=== PATIENT | male | born 1995 | race Caucasian/White ===

== ENCOUNTER 2022-05-04 13:04 | Outpatient (CLI) | payer OTHER ==
[2022-05-04 13:49] VITALS: BP 144/98
--- NOTE | 2022-05-04 13:49 | SLEEP CARE CONSULTATION ---
Information from patient questionnaire entered by Sudeep Quijano. I have reviewed and concur with the information entered by Sudeep Quijano. This document represents the service I personally performed and the decisions made by me, Anna Barnes ARNP. History of Present Illness Service Date and Time: 05/04/2022 1304 Reason for Visit: New patient Chief Complaint: reports: Unrefreshed sleep, Excessive daytime sleepiness, Fatigue, Frequent awakenings at night Date of Onset: MULTIPLE YEARS Usual bedtime: midnight Time it takes to fall asleep: DEPENDS ON THE DAY; avg 30-45 minutes Snores at night: Yes Observed to quit breathing while asleep: No Sleeps alone due to snoring: No Number of times waking at night: A LOT; almost every hour, 6 times on averag Reasons for waking at night: reports: Pain, Other (UNKNOWN REASON ). denies: Choking, Snoring, Gasping for air Toss, Turn, or Twitch while sleeping: Yes Recalls having dreams: Yes Usually gets out of bed at: depends; 5-6 AM Feels refreshed in the morning: No Morning headache: Yes (1-2 times a week; RESOLVES WHEN MEDICATED ) Sleepy or fatigued during the day: Yes Ever fallen asleep while driving: No Takes day naps: No Dreams during day naps: No Prior sleep studies: No Additional HPI information: I had the pleasure of seeing GISSEL LOPES today regarding the possibility of him having a sleep disorder. His current complaints are unrefreshed sleep, excessive daytime sleepiness, fatigue and frequent night awakenings. He states he is tired all the time and not sleeping well for several years. He has been told that he snores a little bit. His girlfriend did not notice any pauses in breathing but he states she is a heavy sleeper. 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 Patient is Single and lives in . Have you smoked in the past 12 months: No Alcohol use: Yes Alcohol amount and frequency: 1-2 TWICE A WEEK Caffeine use: Yes Caffeine amount and frequency: 1 CUP IN THE MORNING Family History Family history of sleep disordered breathing: No Family Hx Sleep Apnea: Father: Snoring Allergies and Home Medications Known drug allergies: No Drug allergies reviewed: Yes (NKDA) Home medication list reviewed: Yes (no daily medications) Review of Systems Weight gain over past 5 years: 40 Cardiovascular: reports: high blood pressure (having evaluated), palpitations Gastrointestinal: reports: heartburn, abdominal pain Neurological: reports: headaches Psychiatric: reports: anxiety, depression Ear/Nose/Throat: reports: tonsillectomy, wisdom teeth removed Musculoskeletal: reports: joint pain, back pain Immunologic: denies: allergies to food or environment Physical Exam Vital signs obtained and entered by: ROBERT FUNG Blood Pressure: 144/98 (LEFT ARM ) Cuff size: regular Heart Rate: 95 O2 Saturation: 98 Height: 5 ft 8 in Weight: 223 lb Body Mass Index: 33.9 BMI Classification: Obese Neck circumference: 16.5 (INCHES ) Mouth and throat: narrow oropharynx Soft palate: long Hard palate: normal Uvula: normal Uvula visualization: 25% Mallampati Class III Tongue: enlarged in size with teeth santana on lateral edges Tonsils: absent bilaterally Neck: normal w/o lymphadenopathy or thyromegaly Heart: regular rate and rhythm Lungs: clear bilaterally Impression and Plan 1. Suspected Obstructive Sleep Apnea-Hypopnea Syndrome, as suggested by a history of irregular snoring, morning headache, frequent awakening during the night, unrefreshed sleep, cognitive impairment, and excessive daytime sleepiness. Narrow oropharynx and obesity are common predisposing factors for obstructive sleep apnea-hypopnea syndrome. I recommend proceeding to polysomnography to confirm the diagnosis and to assess severity. If the patient has significant sleep disordered breathing, a manual CPAP titration study will also be performed to find the optimal treatment pressure. I informed the patient of what the sleep studies involve and after some discussion, obtained agreement to proceed. The pathophysiology of obstructive sleep apnea-hypopnea syndrome was discussed with the patient and health risks of cardiovascular and cerebrovascular disease if not treated. Risks of drowsy driving discussed in detail and patient advised to avoid long distance driving and to ear pull machine operator at the first sign of drowsiness. Patient agreed to plan. * Schedule polysomnography * Avoid long distance driving or driving when feeling sleepy. * Avoid alcohol, sedative and muscle relaxant around bedtime. * Attempt to lose weight. * Review instructions provided by trained office staff on how to prepare for the sleep study. * Return for follow-up after sleep study completed. Counseling Topics: Weight loss health impact Visit Type: In Office Time Spent with Patient (minutes): 25 Provider Statement: I spent 100% of the Face to Face Visit with the patient with greater than 50% spent counseling the patient and coordination of care.
== END 2022-05-04 13:05 | disposition home or self-care (01) ==
LOC: SC 13:04
PROVIDERS: ATTEND Nurse Practitioner Family
DX: R06.83 Snoring (principal); G47.8 Other sleep disorders; R51.9 Headache, unspecified; G47.10 Hypersomnia, unspecified; R53.83 Other fatigue; E66.9 Obesity, unspecified; Z68.33 Body mass index [BMI] 33.0-33.9, adult
CPT/HCPCS: 99202; 99212

== ENCOUNTER 2022-06-15 15:36 | Outpatient (CLI) | payer OTHER ==
--- NOTE | 2022-06-15 16:14 | SLEEP CARE CONSULTATION ---
Information from patient questionnaire entered by Elodia Keane. I have reviewed and concur with the information entered by Elodia Keane. This document represents the service I personally performed and the decisions made by , Anna Barnes ARNP. History of Present Illness Service Date and Time: 06/15/2022 1536 Initial [place] Sleepiness Scale score: 14 (05/05/22) Current [place] Sleepiness Scale score: 14 (06/15/2022) Additional HPI information: GISSEL LOPES returns for follow up and results of the recently performed polysomnography. The patient was informed of the following findings: No significant sleep disordered breathing with an average AHI of 0.5 and apryl oxygen saturation of 90%. I explained the pathophysiology behind obstructive sleep apnea. Patient does not have sleep apnea and was advised how weight gain could increase the risk of developing sleep apnea in the future. I strongly encouraged the patient to lose weight. Patient has light snoring. Snoring can be reduced by weight loss. Weight loss is best achieved with diet consult. Patient instructed to contact PCP for referral. Snoring can also be treated with an oral appliance from a dentist. Advised to check insurance coverage. In addition, an ENT evaluation can be do to see if other treatment is indicated. Patient counseled not drink alcohol less than 4 hours before bedtime as it can increase snoring and apnea. Patient was cautioned about risks of drowsy driving until sleepiness symptoms resolve. Patient denies drowsy driving. Sleep Study - Results Type of Sleep Study: Polysomnography (COMPLETED 05/19/2022) Prior sleep studies: No Polysomnography/Home Sleep Study results: IMPRESSION: The quality of the study is good. The patient had normal sleep efficiency. The sleep architecture was relatively normal as well considering the first night effect. Respiratory monitoring showed no evidence of sleep disordered breathing (AHI = 0.5) or hypoxia (apryl oxygen saturation of 90%). The patient slept adequately in supine position (supine AHI = 0.6; non-supine = 0.45). Apryl oxygen saturation. There was no significant periodic leg movement of sleep. Cardiac rhythm was normal sinus rhythm without significant arrhythmia. No abnormal behavior (parasomnia) observed during the night. Allergies and Home Medications Drug allergies reviewed: Yes (NKDA) Home medication list reviewed: Yes (Trazodone, Zoloft) Review of Systems Review of systems same as previous: No (depression) Physical Exam Vital signs obtained and entered by: ELODIA Bobo MA Blood Pressure: 136/92 (LEFT ARM) Cuff size: regular Heart Rate: 76 O2 Saturation: 97 Height: 5 ft 8 in Weight: 215 lb 9.6 oz Body Mass Index: 32.8 BMI Classification: Obese Impression and Plan Snoring but no significant sleep disordered breathing. Patient advised that often weight loss will reduce snoring as well as apnea risk. An oral appliance can also be used for snoring. This would require a dental consultation. Patient cautioned not to use other online appliances as can cause bite issues. A list of accredited dentists in [facility] and one local dentist who makes oral appliances is available in office. Patient is advised to check if insurance will cover. An ENT consult can also be helpful to determine if any other treatment is an option. * Attempt to lose weight * Avoid alcohol consumption near bedtime * The patient is cautioned about driving until sleepiness is completely resolved. * Return as needed for follow up. Counseling Topics: Weight loss health impact Visit Type: In Office Time Spent with Patient (minutes): 10 Provider Statement: I spent 100% of the Face to Face Visit with the patient with greater than 50% spent counseling the patient and coordination of care.
[2022-06-15 16:16] VITALS: BP 136/92
== END 2022-06-15 15:37 | disposition home or self-care (01) ==
LOC: SC 15:36
PROVIDERS: ATTEND Nurse Practitioner Family
DX: R06.83 Snoring (principal); E66.9 Obesity, unspecified; Z68.32 Body mass index [BMI] 32.0-32.9, adult
CPT/HCPCS: 99212

== ENCOUNTER 2022-08-31 16:13 | Outpatient (CLI) | payer OTHER ==
--- NOTE | 2022-09-01 12:14 | MRI Report ---
PROCEDURE: KNEE WO - LT INDICATIONS: KNEE PAIN TECHNIQUE: Noncontrast sagittal PD fast spin echo and T2 fast spin echo with fat saturation, sagittal 3-D gradie nt sequence with fat saturation; coronal T1 spin echo and PD fast spin echo with fat saturation, and axial PD fast spin echo with fat saturation through the knee. COMPARISON: None. FINDINGS: Image quality: Excellent. Menisci: The medial and lateral menisci demonstrate normal morphology and internal signal. The meni scal root ligaments appear intact. Cruciate ligaments: Proximal to mid anterior cruciate ligament appears thickened with intrasubstance T2 hyperintense signal. PCL is intact. Medial structures: The medial collateral ligament appears intact. The posterior oblique ligament, s emimembranosus tendon insertions, and oblique popliteal ligament, and meniscocapsular junction appear intact. Visualized portions of the pes anserinus tendons appear normal. No abnormal bursal fluid. Lateral structures: The lateral collateral ligament, long and short heads of the biceps femoris tend on appear intact. The popliteus tendon appears normal; the popliteofibular ligament appears intact. Iliotibial band appears normal. Anterior structures: Distal quadriceps tendinosis and low-grade partial-thickness tear at its superio r patella insertion is seen. Patellar tendon is intact. Patellar alignment is normal. No femoral tro chlear dysplasia or ventral trochlear prominence. No edema in the infrapatellar fat pad. Bones and cartilage: There is low to moderate grade chondromalacia patella involving medial facet of patella cartilage near apex with underlying small osteochondral injury. No other area of abnormal mar row signal. No fracture or dislocation. The cartilage of the medial and lateral femorotibial compartm ents appears normal in thickness. Joint space: There is physiologic knee joint fluid. No White's cyst. Normal appearing synovial pli are incidentally noted. IMPRESSION: 1. 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 No fracture or dislocation. No significant joint effusio n. 2. Distal quadriceps tendinosis and low-grade partial-thickness tear at its superior patella insertio n. Patellar tendon is intact. 3. Suggestion of low-grade proximal ACL sprain/partial thickness tear. No ACL rupture. PCL is intact. 4. No evidence of focal meniscal tear. Reviewed by: Dmitri Hollingsworth MD on 09/01/2022 12:12 PM PST Approved by: Dmitri Hollingsworth MD on 09/01/2022 12:12 PM PST Station ID: [id number]
== END 2022-08-31 16:14 | disposition home or self-care (01) ==
LOC: DI 16:13
PROVIDERS: ATTEND Student in an Organized Health Care Education/Training Program
DX: M22.42 Chondromalacia patellae, left knee (principal); S76.112A Strain of left quadriceps muscle, fascia and tendon, initial encounter

== ENCOUNTER 2023-10-31 12:47 | Outpatient (CLI) | payer OTHER ==
--- NOTE | 2023-10-31 16:43 | MRI Report ---
PROCEDURE: Ankle LT WO INDICATIONS: L ANKLE PAIN TECHNIQUE: Noncontrast sagittal T1 spin echo and T2 fast spin echo with fat saturation, axial proton density fas t spin echo and T2 fast spin echo with fat saturation, coronal T1 spin echo and T2 fast spin echo wit h fat saturation through the ankle/hindfoot. COMPARISON: None. FINDINGS: Image quality: Excellent. Bones and joints: No bone marrow contusions or fractures. No hindfoot coalitions. No osteochondral injuries of the talar dome. No pathologic joint effusions. Medial structures: The posterior tibialis, flexor digitorum longus, and flexor hallucis longus tendo ns are intact. The posterior tibial neurovascular bundle appears normal within the tarsal tunnel, wi thout extrinsic mass effect. The deep layer (anterior and posterior tibiotalar ligaments) and superf icial layer (tibionavicular, tibiospring, and tibiocalcaneal ligaments) of the deltoid ligament appea r normal. The spring ligament components (superomedial calcaneonavicular, medioplantar oblique calca neonavicular, and inferoplantar longitudinal ligaments) are intact. Lateral structures: The anterior talofibular ligament appears mildly thickened with subtle intrasubs tance T2 hyperintense signal. Calcaneofibular, and posterior talofibular ligaments appear intact. Mo re superiorly, the anterior and posterior tibiofibular ligaments appear normal, as is the intermalleo lar ligament. The tibiofibular syndesmosis is normal in width at 2 mm or less. The peroneus longus and brevis tendons demonstrate normal location and morphology. Adjacent bony peroneal tubercle and r etrotrochlear prominence are normal in size. The sinus tarsi demonstrates normal fatty signal, witho ut edema, fibrosis, or cyst formation. Visualized sinus tarsi components (cervical ligament, interos seous talocalcaneal ligament, roots of the inferior extensor retinaculum) appear normal. Anterior structures: The tibialis anterior, extensor hallucis longus, and extensor digitorum longus tendons appear intact. Posterior and plantar structures: Mildly thickened at distal Achilles tendon at its posterior calcane al insertion is seen. Medial and lateral bands of the plantar fascia are of normal thickness. No abd uctor digiti quinti muscle atrophy to suggest Cronin neuropathy. IMPRESSION: 1. No marrow edema. No ankle fracture or dislocation. No gross osteochondral injuries of talar dome. 2. Low-grade sprain/intrasubstance partial thickness tear involving anterior talofibular ligament. Th e rest of ankle ligaments are intact. 3. Extensor, flexor, and peroneus tendons are intact. 4. Very mild distal Achilles tendinosis. No Achilles tendon rupture. Reviewed by: Dmitri Hollingsworth MD on 10/31/2023 4:42 PM PDT Approved by: Dmitri Hollingsworth MD on 10/31/2023 4:42 PM PDT Station ID: [id number]
== END 2023-10-31 12:48 | disposition home or self-care (01) ==
LOC: DI 12:47
PROVIDERS: ATTEND Student in an Organized Health Care Education/Training Program
DX: S93.492A Sprain of other ligament of left ankle, initial encounter (principal); M67.972 Unspecified disorder of synovium and tendon, left ankle and foot